=== PATIENT | female | born 1965 | race Caucasian/White ===

== ENCOUNTER 2023-01-11 21:57 | Inpatient (IN) | payer MEDICAID ==
[~2023-01-11] VITALS: Ht 152.4 cm; Wt 70.3 kg
[2023-01-11 22:08] VITALS: BP 118/70
[2023-01-11] MEDS ORDERED: NACL 0.9% 1,000 ML IV ONE (22:55)
[2023-01-11 23:13] LABS: BASOPHILS % (AUTO) 0.2 % (0.0-2.0); EOSINOPHILS # (AUTO) 0.1 K/uL (0-0.4); EOSINOPHILS % (AUTO) 1.3 % (0.0-4.0); HEMATOCRIT 37.2 % (36-48); HEMOGLOBIN 12.3 g/dL (12.0-16.0); LYMPHOCYTES # (AUTO) 2.1 K/uL (2.5-16.5); LYMPHOCYTES % (AUTO) 22.9 % (20.5-51.1); MEAN CORPUSCULAR HEMOGLOBIN 30 pg (27-31); MEAN CORPUSCULAR HGB CONC 33 g/dL (33-37); MEAN CORPUSCULAR VOLUME 89.2 fL (80-94); MONOCYTES # (AUTO) 0.9 K/uL (0.8-1.0); MONOCYTES % (AUTO) 9.7 % (1.7-9.3); NEUTROPHILS # (AUTO) 6.1 K/uL (1.8-7.7); NEUTROPHILS % (AUTO) 65.9 % (42.2-75.2); PLATELET COUNT (AUTO) 269 K/uL (140-450); RED BLOOD CELL COUNT(AUTO) 4.17 MIL/uL (4.20-5.40); RED CELL DISTRIBUTION WIDTH 13.6 % (11.6-13.7); WHITE BLOOD COUNT (AUTO) 9.2 K/uL (4.8-10.8)
[2023-01-11 23:33] LABS: ALBUMIN 3.6 g/dL (3.4-5.0); ANION GAP 13.2 (8-16); ASPARTATE AMINOTRANSFERASE 25 U/L (15-37); CARBON DIOXIDE 28.7 mmol/L (21-32); CHLORIDE 103 mmol/L (98-107); CREATININE 0.9 mg/dL (0.6-1.3); GFR ARICAN-AMERICAN 83 mL/min (>90); GLUCOSE 109 mg/dL (74-106); SODIUM SERUM 142 mmol/L (136-145); TOTAL BILIRUBIN 0.6 mg/dL (0.0-1.0); UREA NITROGEN, BLOOD 13 mg/dL (7-18)
[2023-01-11 23:58] LABS: POTASSIUM 2.9 mmol/L (3.5-5.1)
[2023-01-12] MEDS ORDERED: ASPIRIN 325 MG TAB PO ONE (00:20)
[2023-01-12] MEDS ORDERED: KCL 20 MEQ IN 100 mL PREMIX 100 ML IV ONE (00:20)
[2023-01-12] MEDS ORDERED: NACL 0.9% 1,000 ML IV ONE (01:25)
[2023-01-12] MEDS ORDERED: ACETAMINOPHEN 325 MG TAB PO PRN (07:25)
[2023-01-12] MEDS ORDERED: DOCUSATE SODIUM 100 MG GELCAP PO PRN (07:25)
[2023-01-12] MEDS ORDERED: POTASSIUM CHLORIDE 10 MEQ TABER PO PRN (07:25)
[2023-01-12] MEDS ORDERED: ZOLPIDEM 5 MG TAB PO PRN (07:25)
[2023-01-12] MEDS ORDERED: ONDANSETRON 4 MG/2 ML VIAL IM/IVP PRN (07:25)
[2023-01-12] MEDS ORDERED: HYDROcodone/APAP 7.5/325 MG 1 TAB PO PRN (07:25)
[2023-01-12] MEDS ORDERED: guaiFENesin DM 200/20 MG-10 ML 10 ML UDC PO PRN (07:25)
[2023-01-12] MEDS ORDERED: MECLIZINE 25 MG TAB PO PRN (07:25)
[2023-01-12 07:58] LABS: PROTHROMBIN TIME 10.5 secs (10.8-13.4)
[2023-01-12] MEDS: NACL 0.9% 1,000 ML IV SCH (08:25)
[2023-01-12] MEDS: PANTOPRAZOLE 40 MG TABEC PO SCH (08:26)
[2023-01-12 08:52] LABS: CHOL/HDL RATIO 2.2 (1-4.5); FREE T4 (FREE THYROXINE) 0.86 ng/dL (0.76-1.46); MAGNESIUM 1.7 mg/dL (1.8-2.4); PHOSPHORUS 3.7 mg/dL (2.5-4.9); THYROID STIMULATING HORMONE 0.57 uIU/mL (0.34-3.74)
[2023-01-12 20:00] VITALS: BP 124/69
[2023-01-12] MEDS ORDERED: MAGNESIUM OXIDE 400 MG TAB PO SCH (22:28)
[2023-01-13] VITALS: BP 100/46
[2023-01-13] MEDS: NACL 0.9% 1,000 ML IV SCH ×3 (00:05→23:50)
[2023-01-13 03:14] LABS: APPEARANCE,URINE CLEAR (CLEAR); BILIRUBIN,URINE NEGATIVE (NEGATIVE); BLOOD, URINE 3+ (NEGATIVE); COLOR,URINE YELLOW (YELLOW); LEUKOCYTE ESTERASE ,URINE NEGATIVE (NEGATIVE); NITRITE, URINE POSITIVE (NEGATIVE); UGLUCOSE NEGATIVE (NEGATIVE)
[2023-01-13 03:22] LABS: BARBITURATE, URINE NEGATIVE ng/ml (NEG <=200); BENZODIAZEPINE, URINE NEGATIVE ng/mL (NEG <=200); CANNABINOID, URINE NEGATIVE ng/mL (NEG <=50); COCAINE, URINE NEGATIVE ng/mL (NEG <=300); OPIATE, URINE NEGATIVE ng/mL (NEG <=2000); PHENCYCLIDINE SCREEN,URINE NEGATIVE ng/mL (NEG <=25)
[2023-01-13 04:00] VITALS: BP 97/50
[2023-01-13 06:49] LABS: BASOPHILS % (AUTO) 0.1 % (0.0-2.0); EOSINOPHILS # (AUTO) 0.1 K/uL (0-0.4); HEMATOCRIT 34.4 % (36-48); HEMOGLOBIN 11.5 g/dL (12.0-16.0); LYMPHOCYTES # (AUTO) 2.3 K/uL (2.5-16.5); LYMPHOCYTES % (AUTO) 25.6 % (20.5-51.1); MEAN CORPUSCULAR HEMOGLOBIN 30 pg (27-31); MEAN CORPUSCULAR HGB CONC 33 g/dL (33-37); MEAN CORPUSCULAR VOLUME 88.4 fL (80-94); MONOCYTES # (AUTO) 0.7 K/uL (0.8-1.0); MONOCYTES % (AUTO) 8.2 % (1.7-9.3); NEUTROPHILS # (AUTO) 5.7 K/uL (1.8-7.7); NEUTROPHILS % (AUTO) 65.1 % (42.2-75.2); PLATELET COUNT (AUTO) 273 K/uL (140-450); RED BLOOD CELL COUNT(AUTO) 3.89 MIL/uL (4.20-5.40); RED CELL DISTRIBUTION WIDTH 13.5 % (11.6-13.7); WHITE BLOOD COUNT (AUTO) 8.8 K/uL (4.8-10.8)
[2023-01-13 06:58] LABS: ANION GAP 11.3 (8-16); CARBON DIOXIDE 28.4 mmol/L (21-32); CREATININE 0.6 mg/dL (0.6-1.3)
[2023-01-13 07:04] LABS: POTASSIUM 2.7 mmol/L (3.5-5.1)
[2023-01-13 08:00] VITALS: BP 95/47
[2023-01-13 08:07] LABS: T4 (THYROXINE) 7.2 ug/dL (4.5-12.0)
[2023-01-13] MEDS ORDERED: KCL 20 MEQ IN 100 mL PREMIX 200 ML IV SCH (08:15)
[2023-01-13] MEDS ORDERED: POTASSIUM CHLORIDE 40 MEQ, LIDOCAINE 1% 25 MG in NACL 0.9% 250 ML IV SCH ×2 (09:00→15:00)
[2023-01-13] MEDS: PANTOPRAZOLE 40 MG TABEC PO SCH (10:15)
[2023-01-13] MEDS: MAGNESIUM OXIDE 400 MG TAB PO SCH (10:15)
[2023-01-13 12:00] VITALS: BP 97/44
[2023-01-13 16:00] VITALS: BP 105/57
[2023-01-13 20:00] VITALS: BP 91/48
[2023-01-14] VITALS: BP 100/56
[2023-01-14 04:00] VITALS: BP 100/53
[2023-01-14 07:10] LABS: BASOPHILS % (AUTO) 0.3 % (0.0-2.0); EOSINOPHILS # (AUTO) 0.1 K/uL (0-0.4); EOSINOPHILS % (AUTO) 1.1 % (0.0-4.0); HEMATOCRIT 35.3 % (36-48); HEMOGLOBIN 11.7 g/dL (12.0-16.0); LYMPHOCYTES # (AUTO) 2.3 K/uL (2.5-16.5); LYMPHOCYTES % (AUTO) 26.2 % (20.5-51.1); MEAN CORPUSCULAR HEMOGLOBIN 30 pg (27-31); MEAN CORPUSCULAR HGB CONC 33 g/dL (33-37); MEAN CORPUSCULAR VOLUME 89.2 fL (80-94); MONOCYTES # (AUTO) 0.7 K/uL (0.8-1.0); MONOCYTES % (AUTO) 7.9 % (1.7-9.3); NEUTROPHILS # (AUTO) 5.7 K/uL (1.8-7.7); NEUTROPHILS % (AUTO) 64.5 % (42.2-75.2); PLATELET COUNT (AUTO) 267 K/uL (140-450); RED BLOOD CELL COUNT(AUTO) 3.95 MIL/uL (4.20-5.40); RED CELL DISTRIBUTION WIDTH 13.1 % (11.6-13.7); WHITE BLOOD COUNT (AUTO) 8.8 K/uL (4.8-10.8)
[2023-01-14 07:32] LABS: ANION GAP 10.8 (8-16); CARBON DIOXIDE 28.7 mmol/L (21-32); CREATININE 0.7 mg/dL (0.6-1.3); POTASSIUM 3.5 mmol/L (3.5-5.1)
[2023-01-14 08:00] VITALS: BP 92/46
[2023-01-14] MEDS: MAGNESIUM OXIDE 400 MG TAB PO SCH (09:28)
[2023-01-14] MEDS: PANTOPRAZOLE 40 MG TABEC PO SCH (09:28)
[2023-01-14] MEDS ORDERED: CEPH-588 PO (12:49)
[2023-01-14] MEDS ORDERED: POTA10TA70 PO (12:49)
[2023-01-14 14:37] VITALS: BP 130/58
[2023-01-14 14:39] VITALS: BP 130/58
== END 2023-01-14 15:26 | disposition home or self-care (01) | DRG 204 ==
LOC: MED 21:57 → MTU 01-12 01:23
PROVIDERS: ADMIT Family Medicine; ATTEND Family Medicine
DX: R55 Syncope and collapse (principal); G93.41 Metabolic encephalopathy; E87.6 Hypokalemia; I95.9 Hypotension, unspecified; E83.51 Hypocalcemia; N39.0 Urinary tract infection, site not specified; N18.9 Chronic kidney disease, unspecified; R07.9 Chest pain, unspecified; Z20.822 Contact with and (suspected) exposure to COVID-19; I12.9 Hypertensive chronic kidney disease with stage 1 through stage 4 chronic kidney disease, or unspecified chronic kidney disease; Z90.710 Acquired absence of both cervix and uterus
CPT/HCPCS: 36415; 70450; 71045; 80048; 80053; 80305; 81001; 82150; 83036; 83690; 83735; 83880; 84100; 84436; 84439; 84443; 84479; 84484; 85025; 85610; 85730; 87081; 87086; 93005; 93880; 96361; 96365; 96366; J0696; J2001; J3480; J7030; J7060; Q0092